=== PATIENT | female | born 1960 ===

== ENCOUNTER 2023-12-26 10:03 | Outpatient (REF) | payer OTHER, SELFPAY ==
--- NOTE | ~2023-12-26 | XR_ITS ---
EXAMINATION: XR KNEE, RIGHT CLINICAL INFORMATION: Pain in right knee. COMPARISON: None available. TECHNIQUE: Three views of the right knee. FINDINGS: Moderate joint effusion. Status post total knee arthroplasty. Hardware appears intact. Alignment is maintained. There is prominent lucency just deep/inferior to the posterior flange of the tibial component and correlation with clinical exam and surgical history recommended to determine further evaluation. XR/XR knee RT 3V IMPRESSION: Status post total knee arthroplasty. There is prominent lucency just deep/inferior to the posterior flange of the tibial component and correlation with clinical exam and surgical history recommended to determine further evaluation.
== END 2023-12-26 10:04 | disposition home or self-care (01) ==
LOC: HO.HOSX 10:03
PROVIDERS: Visit Provider Orthopaedic Surgery
DX: M25.561 Pain in right knee (principal)
CPT/HCPCS: 73562

== ENCOUNTER 2023-12-26 11:33 | Outpatient (AMB) | payer OTHER, SELFPAY ==
--- NOTE | 2023-12-26 11:58 | MHC.OFFVIS ---
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 The patient denies any recent traumatic event. She states that she has been quite active working a part-time job as well as playing on the ground with her 2 young grandchildren. She denies any locking or giving way. She denies any fevers or chills. Allergies No Known Allergies Allergy (Verified 12/26/23 12:03) Medication List - Last Reconciled 12/26/23 by Jules Salcedo MD citalopram 40 mg PO DAILY lamotrigine 300 mg PO DAILY trazodone 100 mg PO BEDTIME zolpidem 5 mg PO BEDTIME PFSH Surgical History (Updated 12/26/23 @ 12:08 by Ivy Mayfield CMA) Hx of right knee surgery (~04/09/22) Hx of section H/O: hysterectomy (~2001) Social History (Updated 12/26/23 @ 12:05 by Ivy Mayfield CMA) Patient Tobacco Use Status: Never used Tobacco Current occupational status: retired Current occupation: Right hand dominate Physical Exam Vital Signs: BMI result Body Mass Index 28.3 Const Other: Well-nourished well-developed very friendly female awake alert and oriented x3 in no acute distress Extrem Other: Bilateral lower extremity examination shows good capillary refill, no skin lesions noted, normal sensation light touch Right knee examination shows that the surgical incision is well healed, no erythema, full active extension and flexion to 125 degrees with minimal discomfort, no focal tenderness, her patella tracks well Results Reviewed Results Reviewed: X-rays of the patient's right knee show a total knee arthroplasty in good position with no signs of loosening, no acute bony abnormalities Assessment & Plan Assessment & Plan (1) Right knee pain: Code(s): M25.561 - Pain in right knee Plan Ms. Ram continues to do well after undergoing right total knee replacement surgery on 04/09/2022. She does have intermittent discomfort most likely due to overuse. Activity modifications were discussed at length with the patient. She does know to take antibiotics before any dental work. She will contact me prior to her annual follow-up appointment should her symptoms worsen in any way. Feel free to call me at any time should questions regarding her orthopedic management arise. I spent 22 minutes in reviewing the patient's records and imaging studies, seeing the patient and documenting in the medical record. Orders: Orders XR knee RT 3V Today M25.561 - Pain in right knee Coding Level of Care Code Est Pt Level 2 (85656) Diagnoses Right knee pain M25.561
[2023-12-26 12:05] VITALS: BMI 28.3
== END 2023-12-26 12:20 | disposition home or self-care (01) ==
PROVIDERS: PCP Internal Medicine; Visit Provider Orthopaedic Surgery
DX: M25.561 Pain in right knee (principal)
CPT/HCPCS: 99213